=== PATIENT | female | born 1990 | race African-American/Black ===

== ENCOUNTER 2020-03-19 12:36 | Outpatient (CLI) | payer OTHER, SELFPAY ==
--- NOTE | ~2020-03-19 | US_ITS ---
EXAMINATION: US pelvic complete DATE: 03/19/2020 13:03 INDICATION: Abnormal uterine bleeding TECHNIQUE: Multiple transabdominal sonographic images of the pelvis were obtained. COMPARISON: 03/08/2018 FINDINGS: The uterus measures 7.7 x 4.2 x 4.8 cm. There is a 2.7 cm subserosal fibroid of the anterio r uterine body without significant interval change. The endometrial complex measures 6 mm. The right ovary measures 2.8 x 2.0 x 2.6 cm. The left ovary measures 3.6 x 2.1 x 3.5 cm. There is normal vascul ar flow in the ovaries. There is no free fluid in the pelvis. IMPRESSION: 1. No sonographic correlate for the patient's symptoms. 2. Uterine fibroid. Reviewed, dictated and finalized at location A.
== END 2020-03-19 12:37 ==
LOC: MICIMG 12:38
PROVIDERS: Visit Provider Obstetrics & Gynecology Gynecology
DX: N93.8 Other specified abnormal uterine and vaginal bleeding (principal); D25.9 Leiomyoma of uterus, unspecified
CPT/HCPCS: 76856